=== PATIENT | female | born 1980 | race Caucasian/White ===

== ENCOUNTER 2020-11-06 17:29 | Emergency (ER) | payer OTHER ==
[2020-11-06] MEDS ORDERED: Ativan 2 MG/1 ML VIAL ONE (17:43)
[2020-11-06] MEDS ORDERED: Zofran 4 MG/2 ML VIAL IV ONE (17:45)
[2020-11-06] MEDS ORDERED: TYLENOL EXTRA STRENGTH 500 MG PO STA (17:45)
[2020-11-06] MEDS ORDERED: DUONEB 0.5-3 MG/3 ml Neb IH ONE (17:45)
[2020-11-06] MEDS ORDERED: Ativan 2 MG/1 ML VIAL IV ONE (17:47)
--- NOTE | 2020-11-06 17:51 | ERPHSYRPT ---
- History of Present Illness Time Seen by Provider: 11/06/20 17:48 Source: patient Exam Limitations: no limitations Patient Subjective Stated Complaint: SOB Triage Nursing Assessment: Patient brought back to ED via w/c and transferred self to bed. Patient A+O x3. Patient's skin flushed, warm and dry. Patient complains of fatigue, increased SOB and feels hard to take a deep breath. Patient denies pain or discomfort. Lungs clear a/p brian. Physician History: 40 years old female came to the emergency room with shortness of breath for last 1 to 2 days with fever and chills and generalized body ache. Patient has recent exposure to Covid. Patient is also complaining of difficulty taking deep breath. Timing/Duration: today Cough Quality/Degree: moderate Associated Symptoms: chest pain/soreness, muscle aches, shortness of breath Allergies/Adverse Reactions: phentermine [From Adipex-P] Allergy (Verified 11/06/20 17:32) Home Medications: Bupropion HCl Xl 150 mg [Wellbutrin XL 150 MG] 300 mg PO DAILY 11/06/20 [History] Hx Influenza Vaccination/Date Given: No Hx Pneumococcal Vaccination/Date Given: No Immunizations Up to Date: Yes Travel Risk - International Travel Have you traveled outside of the country in past 3 weeks: No - Coronavirus Screening Symptoms: Shortness of Breath Close contact with a COVID-19 positive Pt in past 14-21 Days: No - Review of Systems Constitutional: Fever, Chills, Fatigue, Malaise, Weakness Eyes: No Symptoms Ears, Nose, & Throat: No Symptoms Respiratory: Dyspnea, Dyspnea on Exertion (DE GUZMAN) Cardiac: No Symptoms Abdominal/Gastrointestinal: No Symptoms Genitourinary Symptoms: No Symptoms Musculoskeletal: No Symptoms Skin: No Symptoms Neurological: No Symptoms Psychological: No Symptoms Endocrine: No Symptoms - Past Medical History Pertinent Past Medical History: Yes Neurological History: No Pertinent History ENT History: No Pertinent History Cardiac History: Hypertension Respiratory History: No Pertinent History Endocrine Medical History: No Pertinent History Musculoskeletal History: No Pertinent History GI Medical History: No Pertinent History History: No Pertinent History Psycho-Social History: Depression Female Reproductive Disorders: No Pertinent History Other Medical History: Hx of melanoma - Past Surgical History Past Surgical History: Yes Cardiac: No Pertinent History Respiratory: No Pertinent History Gastrointestinal: No Pertinent History Genitourinary: No Pertinent History Musculoskeletal: No Pertinent History Female Surgical History: No Pertinent History - Social History Smoking Status: Never smoker Exposure to second hand smoke: No Drug Use: none Patient Lives Alone: No - Female History Hx Last Menstrual Period: two days ago Hx Now: No - Nursing Vital Signs Nursing Vital Signs: Initial Vital Signs Temperature 98.6 F 11/06/20 17:34 Pulse Rate 108 H 11/06/20 17:34 Respiratory Rate 24 11/06/20 17:34 Blood Pressure 164/106 11/06/20 17:34 O2 Sat by Pulse Oximetry 99 11/06/20 17:34 Pain Scale Pain Intensity 0 - Physical Exam General Appearance: moderate distress Eye Exam: PERRL/EOMI Ears, Nose, Throat Exam: normal ENT inspection Neck Exam: normal inspection Respiratory Exam: chest tenderness, diminished breath sounds, accessory muscle use, rhonchi, wheezing Cardiovascular Exam: tachycardia Gastrointestinal/Abdomen Exam: soft Pelvic Exam: not done Rectal Exam: deferred Back Exam: normal inspection Extremity Exam: normal inspection Neurologic Exam: alert, oriented x 3 Skin Exam: warm, dry Lymphatic Exam: No adenopathy SpO2 Interpretation: normal SpO2: 99 O2 Delivery: Room Air - Course Nursing assessment & vital signs reviewed: Yes EKG Interpreted by Me: Sinus Tach Rhythm Strip: Sinus Tachycardia - Radiology Exams Chest X-ray Interpretation: Reviewed by me (Bibasilar infiltrate) Ordered Tests: Active Orders 24 hr Category Date Time Status [employer] Agent STAT Care 11/06/20 17:45 Active EKG-ER Only STAT Care 11/06/20 17:45 Active ISDH COVID Approval STAT Care 11/06/20 17:45 Active IV Insertion STAT Care 11/06/20 17:52 Active Isolation, Initiate & Maintain STAT Care 11/06/20 17:45 Active Isolation, Initiate & Maintain STAT Care 11/06/20 18:15 Active Oxygen-ED Only High Flow per RT 50% Care 11/06/20 17:45 Active Pulse Oximetry (ED) ROUTINE Care 11/06/20 17:45 Active CHEST 1 VIEW (PORTABLE) Stat Exams 11/06/20 17:45 Completed ARTERIAL BLOOD GASES Stat Lab 11/06/20 18:05 Completed BLOOD CULTURE Stat Lab 11/06/20 17:50 Received CBC Stat Lab 11/06/20 18:00 Completed CMP Stat Lab 11/06/20 18:00 Completed D-DIMER QUANTITATIVE Stat Lab 11/06/20 18:00 Completed LDH-LACTATE DEHYDROGENASE Stat Lab 11/06/20 18:00 Completed Lactic Acid Stat Lab 11/06/20 18:05 Completed Respiratory Therapy Assessment DAILY RT 11/06/20 18:15 Completed Medication Summary Generic Name Dose Route Start Last Admin Trade Name Ritesh PRN Reason Stop Dose Admin Lactated Ringer's 1,000 mls @ 50 mls/hr 11/06/20 18:00 Lactated Ringers IV 12/06/20 17:59 .Q20H ANTONY Discontinued Medications Generic Name Dose Route Start Last Admin Trade Name Ritesh PRN Reason Stop Dose Admin Acetaminophen 1,000 mg 11/06/20 17:45 Tylenol Extra Strength 500 Mg PO 11/06/20 17:46 STAT STA Albuterol Sulfate 4 puff 11/06/20 18:05 11/06/20 18:17 Ventolin Common Canister IH 11/06/20 18:06 4 puff STAT ONE Administration Albuterol/Ipratropium 3 ml 11/06/20 17:45 Duoneb 0.5-3 Mg/3 Ml Neb IH 11/06/20 17:46 STAT ONE Ceftriaxone Sodium/Dextrose 1 g in 50 mls @ 100 mls/hr 11/06/20 18:15 0 11/06/20 18:22 Rocephin 1 Gm-D5w 50 Ml Bag IV 11/06/20 18:44 100 ml/hr STAT ONE 100 mls/hr Administration Ceftriaxone Sodium/Dextrose Confirm 11/06/20 18:20 Rocephin 1 Gm-D5w 50 Ml Bag Administered 11/06/20 18:21 Dose 1 g in 50 mls @ ud IV .STK-MED ONE Lorazepam Confirm 11/06/20 17:43 Ativan 2 Mg/1 Ml Vial Administered 11/06/20 17:44 Dose 2 mg .ROUTE .STK-MED ONE Lorazepam 2 mg 11/06/20 17:47 11/06/20 17:48 Ativan 2 Mg/1 Ml Vial IV 11/06/20 17:48 2 mg STAT ONE Administration Ondansetron HCl 4 mg 11/06/20 17:45 Zofran 4 Mg/2 Ml Vial IV 11/06/20 17:46 STAT ONE Potassium Bicarbonate 25 meq 11/06/20 18:26 11/06/20 18:35 K-Lyte 25 Meq PO 11/06/20 18:27 25 meq STAT ONE Administration Potassium Bicarbonate Confirm 11/06/20 18:34 K-Lyte 25 Meq Administered 11/06/20 18:35 Dose 25 meq .ROUTE .STK-MED ONE Lab/Rad Data: Laboratory Result Diagrams 11/06/20 18:00 11/06/20 18:00 Laboratory Results 11/06/20 11/06/20 11/06/20 Range/Units 18:05 18:00 18:00 WBC (4.0-10.5) K/mm3 RBC (4.1-5.4) M/mm3 Hgb (12.0-16.0) gm/dl Hct (35-47) % MCV (78-100) fl MCH (26-32) pg MCHC (32-36) g/dl RDW (11.5-14.0) % Plt Count (150-450) K/mm3 MPV (7.5-11.0) fl D-Dimer < 215 L (215-500) ng/mL Puncture Site RIGHT BRACHIAL pCO2 34 L (35-45) mmHg pO2 77 (75-100) mmHg Base Excess 1.5 (-2.0-2.0) O2 Saturation 94.9 (94-100) g/dF ABG pH 7.47 H (7.35-7.45) ABG HCO3 24.7 (22-28) ABG O2 Sat (Measured) 96.7 (95-100) % Frederick Test NOT APPLICABLE A-a Gradient 30 a/A Ratio 0.72 Hemoglobin 13.4 Carboxyhemoglobin 0.5 (0.0-6.9) % THgb Methemoglobin 1.4 (1.4-1.5) % Temperature 37.0 C POC O2 Flow Rate 21 % Sodium 133 L (137-145) mmol/L Potassium 3.4 L 3.4 L (3.5-5.1) mmol/L Chloride 101 (98-107) mmol/L Carbon Dioxide 24 (22-30) mmol/L Anion Gap 11.6 (5-15) MEQ/L BUN 13 (7-17) mg/dL Creatinine 0.94 (0.52-1.04) mg/dL Estimated GFR > 60.0 ML/MIN Glucose 102 (74-106) mg/dL Lactic Acid 1.6 (0.4-2.0) Calcium 9.2 (8.4-10.2) mg/dL Total Bilirubin 0.50 (0.2-1.3) mg/dL AST 29 (14-36) U/L ALT 16 (0-35) U/L Alkaline Phosphatase 66 (38-126) U/L Lactate Dehydrogenase 208 (120-246) U/L Serum Total Protein 7.4 (6.3-8.2) g/dL Albumin 4.4 (3.5-5.0) g/dL 11/06/20 Range/Units 18:00 WBC 5.4 (4.0-10.5) K/mm3 RBC 4.22 (4.1-5.4) M/mm3 Hgb 13.3 (12.0-16.0) gm/dl Hct 38.1 (35-47) % MCV 90.3 (78-100) fl MCH 31.5 (26-32) pg MCHC 34.9 (32-36) g/dl RDW 12.5 (11.5-14.0) % Plt Count 264 (150-450) K/mm3 MPV 8.8 (7.5-11.0) fl D-Dimer (215-500) ng/mL Puncture Site pCO2 (35-45) mmHg pO2 (75-100) mmHg Base Excess (-2.0-2.0) O2 Saturation (94-100) g/dF ABG pH (7.35-7.45) ABG HCO3 (22-28) ABG O2 Sat (Measured) (95-100) % Frederick Test A-a Gradient a/A Ratio Hemoglobin Carboxyhemoglobin (0.0-6.9) % THgb Methemoglobin (1.4-1.5) % Temperature C POC O2 Flow Rate % Sodium (137-145) mmol/L Potassium (3.5-5.1) mmol/L Chloride (98-107) mmol/L Carbon Dioxide (22-30) mmol/L Anion Gap (5-15) MEQ/L BUN (7-17) mg/dL Creatinine (0.52-1.04) mg/dL Estimated GFR ML/MIN Glucose (74-106) mg/dL Lactic Acid (0.4-2.0) Calcium (8.4-10.2) mg/dL Total Bilirubin (0.2-1.3) mg/dL AST (14-36) U/L ALT (0-35) U/L Alkaline Phosphatase (38-126) U/L Lactate Dehydrogenase (120-246) U/L Serum Total Protein (6.3-8.2) g/dL Albumin (3.5-5.0) g/dL - Progress Progress: improved Air Movement: good Blood Culture(s) Obtained: Yes Antibiotics given: Yes Counseled pt/family regarding: lab results, diagnosis, need for follow-up, rad results - Departure Departure Disposition: Home Clinical Impression: Other viral pneumonia, Asymptomatic COVID-19 virus infection Condition: Stable Critical Care Time: No Critical Care Time(excluding separately billable procedures): Critical 30-74 mi ns Referrals: SIMRAN LEWIS MD [Primary Care Provider] - Instructions: Pneumonia, Adult (DC), Shortness of Breath (Dyspnea) (DC), Coronavirus Disease 2019 (COVID-19) (DC) Additional Instructions: Discharge/Care Plan KARTIK HERNÁNDEZ was seen on 11/06/20 in the Emergency Room. The patient was counseled regarding Diagnosis,Lab results, Imaging studies, need for follow up and when to return to the Emergency Room. Prescriptions given: Discharge Note I have spoken with the patient and/or caregivers. I have explained the patient's condition, diagnosis and treatment plan based on the information available to me at this time. I have answered the patient's and/or caregiver's questions and ad dressed any concerns. The patient and/or caregivers have as good understanding of the patient's diagnosis, condition and treatment plan as can be expected at this point. The vital signs have been stable. The patient's condition is stable and appropriate for discharge from the emergency department. The patient will pursue further outpatient evaluation with the primary care physician or other designated or consulting physician as outlined in the discharge instructions. The patient and/or caregivers are agreeable to this plan of care and follow-up instructions have been explained in detail. The patient and/or caregivers have received these instruction. The patient/and or caregivers are aware that any significant change in condition or worsening of symptoms should prompt an immediate return to this or the closest emergency department or call 911. KARTIK HERNÁNDEZ was seen on 11/06/20 n the Emergency Room. At that time you were treated for an emergent condition, during your visit Laboratory, Radiology and/or other procedures may have been ordered. It is very important that you follow-up with your Primary Care Physician SIMRAN LEWIS within the next 24-48 hours to review your Emergency Room visit and the final results of testing that was ordered. Some test results such as Urine Cultures, Blood Cultures, and other cultures if ordered will not be finalized for 24-48 hours. If you do not have a Primary Care Provider please call the medical records department at [phone] ext [phone] to obtain a copy of your results or you may sign into our patient portal to obtain these results by visiting us @ [email or web address] and completing the following steps: 1. Click on the Patient Portal link 2. Click the Patient Self Enrollment Link to complete the enrollment form and entering your 3. Once the enrollment form is completed you will receive an email with a [employer] porary ID and password at the email address you provided. 4. Next choose a user name and password. Your user name must be at least 4 characters long and your password must be at least 4 characters long. 5. Choose a security question from the list and provide your answer to the question. If you already have signed into the Health Portal you may access your Health Care Information 29/05 by the following steps: 1. Login to our website @ [email or web address] 2. Enter your original user name and password. FAQS The [facility] Health Portal is an online tool that contains your Lab Results, Radiology Reports, Visit History, Discharge Instructions and Health Summary Lab and Radiology Results will not be available for 72 hours on the portal. The Portal is a secure site, passwords are encryted and URLs are re-written so they cannot be copied and pasted. You and authorized family members are the only ones who can access your Portal. Also there is a timeout feature that protects your information if you leave the Portal page open. If you have technical difficulty please use the Contact Us link on the page this will allow you to submit any questions you have regarding the Portal or you may contact the Medical Record Department at [phone] ext [phone]. Prescriptions: Azithromycin [Zithromax] 250 mg PO UD 5 Days #6 tablet
[2020-11-06] MEDS ORDERED: Lactated Ringers 1,000 ML IV SCH (18:00)
[2020-11-06] MEDS ORDERED: VENTOLIN COMMON CANISTER IH ONE (18:05)
[2020-11-06 18:11] LABS: Hematocrit 38.1 % (35-47); Hemoglobin 13.3 gm/dl (12.0-16.0); Mean Cell Volume 90.3 fl (78-100); Mean Corpuscular Hemoglobin 31.5 pg (26-32); Mean Corpuscular Hgb Concent. 34.9 g/dl (32-36); Mean Platelet Volume 8.8 fl (7.5-11.0); Platelet Count 264 K/mm3 (150-450); Red Blood Count 4.22 M/mm3 (4.1-5.4); Red Cell Distribution Width 12.5 % (11.5-14.0); White Blood Count 5.4 K/mm3 (4.0-10.5)
[2020-11-06 18:15] LABS: A-aADO2 30; ABG HEMOGLOBIN 13.4; ABG POTASSIUM 3.4 (3.5-5.1); ARTERIAL BLD GAS O2 SATURATION 96.7 % (95-100); ARTERIAL BLOOD GAS BASE EXCESS 1.5 (-2.0-2.0); ARTERIAL BLOOD GAS FIO2 21 %; ARTERIAL BLOOD GAS PCO2 34 mmHg (35-45); ARTERIAL BLOOD GAS PO2 77 mmHg (75-100); ARTERIAL BLOOD GAS pH 7.47 (7.35-7.45); CARBOXYHEMOGLOBIN 0.5 % THgb (0.0-6.9); HCO3- 24.7 (22-28); HGB O2 SAT 94.9 g/dF (94-100); Lactic Acid 1.6 (0.4-2.0); Methhemoglobin 1.4 % (1.4-1.5); paO2 pAO1 0.72
[2020-11-06] MEDS ORDERED: ROCEPHIN 1 Gm-D5w 50 ml Bag** 1 G/50 ML IVPB IV ONE ×2 (18:15→18:20)
[2020-11-06 18:16] LABS: ABG SITE RIGHT BRACHIAL
--- NOTE | 2020-11-06 18:17 | XRAY ---
Indication: Short of breath. Suspect Covid 19. Comparison: None Portable chest demonstrates normal heart, lungs, and bony thorax with incidental tiny left base calcified granuloma.
[2020-11-06 18:20] LABS: ALBUMIN 4.4 g/dL (3.5-5.0); ALKALINE PHOSPHATASE 66 U/L (38-126); ANION GAP 11.6 MEQ/L (5-15); BLOOD UREA NITROGEN 13 mg/dL (7-17); CHLORIDE 101 mmol/L (98-107); Calcium 9.2 mg/dL (8.4-10.2); Carbon Dioxide 24 mmol/L (22-30); Creatinine 1 0.94 mg/dL (0.52-1.04); EST GLOMERULAR FILTRATION RATE > 60.0 ML/MIN; Glucose 102 mg/dL (74-106); LDH-LACTATE DEHYDROGENASE 208 U/L (120-246); Potassium 3.4 mmol/L (3.5-5.1); SGOT/AST 29 U/L (14-36); SGPT/ALT 16 U/L (0-35); SODIUM 133 mmol/L (137-145); Total Protein 7.4 g/dL (6.3-8.2)
[2020-11-06] MEDS ORDERED: K-LYTE 25 MEQ PO ONE (18:26)
[2020-11-06] MEDS ORDERED: K-LYTE 25 MEQ ONE (18:34)
[2020-11-06 18:38] VITALS: O2SAT 99
[2020-11-06 19:01] VITALS: BP 138/81; PULSE 88
== END 2020-11-06 19:02 | disposition home or self-care (01) ==
LOC: ED 17:29
DX: R06.02 Shortness of breath (principal); R53.83 Other fatigue; J12.9 Viral pneumonia, unspecified; U07.1 COVID-19; R00.0 Tachycardia, unspecified
CPT/HCPCS: 36000; 36415; 36600; 71045; 80053; 82375; 82803; 83605; 83615; 85027; 85379; 87040; 93005; 93041; 94640; 94760; 96365; 96374; 99284; 99291; J0696; J2060; A9270-GY